=== PATIENT | female | born 1985 | race African-American/Black ===

== ENCOUNTER 2016-09-16 22:13 | Emergency (ER) | payer MEDICAID, OTHER ==
[~2016-09-16] VITALS: Ht 154.9 cm; Wt 54.4 kg
[2016-09-17] MEDS ORDERED: LORazepam 2MG/ML-1ML VIAL ONE (00:01)
[2016-09-17] MEDS ORDERED: LORazepam 2MG/ML-1ML VIAL IV ONE (00:15)
[2016-09-17 01:00] LABS: Basophils # (auto) 0 uL; Basophils % (auto) 0.1 % (0.0-2.0); CONDITION Y; Eosinophils # (auto) 0 uL; Eosinophils % (auto) 0.3 % (0.0-7.0); Hematocrit 30.7 % (36.0-46.0); Hemoglobin 10.1 g/dL (12.2-16.2); Lymphocytes # (auto) 1.6 uL; Lymphocytes % (auto) 12.3 % (10.0-50.0); Mean Corpuscular Hemoglobin 29.6 pg (28.0-32.0); Mean Corpuscular Volume 89.8 fL (80.0-100.0); Mean Platelet Volume 8.4 fL (7.4-10.4); Monocytes # (auto) 0.8 uL; Monocytes % (auto) 6.2 % (0.0-12.0); Neutrophils # (auto) 10.3 uL; Neutrophils % (auto) 81.1 % (37.0-80.0); Platelet Count (auto) 505 10^3/uL (140-450); White Blood Cell 12.6 10^3/uL (4.4-10.8)
[2016-09-17 01:11] LABS: Albumin 1.8 g/dL (3.4-5.0); BUN/Creatinine Ratio 11.9; Calcium 7.6 mg/dL (8.5-10.1); Potassium 3.3 mmol/L (3.5-5.1)
[2016-09-17 01:13] LABS: Bilirubin, Total 0.7 mg/dL (0.2-1.0); Total Protein 5.7 g/dL (6.4-8.2)
[2016-09-17] MEDS ORDERED: IOHEXOL 300 MG/ML 100ML BOTTLE IJ ONE (01:42)
[2016-09-17] MEDS ORDERED: GASTROGRAFIN 30 ML SOL ONE (01:42)
[2016-09-17] MEDS ORDERED: SODIUM CHLORIDE 0.9% 1,000 ML IV ONE (01:45)
[2016-09-17] MEDS ORDERED: cefTRIAXone 1GM/50ML D5W 50 ML IV ONE (01:45)
[2016-09-17 02:46] LABS: Urine Bilirubin Negative (Negative); Urine Color Yellow (Yellow); Urine Glucose Normal (Normal); Urine Ketone Negative (Negative); Urine Nitrite Negative (Negative); Urine RBC 4 /hpf (0 - 4); Urine Squamous Epithelial Cell FEW /hpf (<5); Urine Urobilinogen Normal (Negative); Urine WBC Clumps PRESENT /hpf (None Seen)
[2016-09-17 02:47] LABS: Urine Blood 2+ /uL (Negative)
[2016-09-17] MEDS ORDERED: VANCOMYCIN 1GM/250ML D5W 250 ML IV ONE (04:30)
[2016-09-17 05:15] LABS: INR 1.06 (0.9-1.15); Partial Thromboplastin Time 28.4 sec (22.64-33.71); Prothrombin Time 11.6 sec (9.37-12.3)
[2016-09-17] MEDS ORDERED: ACETAMINOPHEN 325 MG TAB PO ONE (05:30)
[2016-09-17 10:20] VITALS: BP 137/91
== END 2016-09-17 10:32 | disposition short-term general hospital (02) ==
LOC: EDBD 22:13 → ER 22:26
DX: G40.909 Epilepsy, unspecified, not intractable, without status epilepticus (principal); J18.9 Pneumonia, unspecified organism; K63.1 Perforation of intestine (nontraumatic); D72.829 Elevated white blood cell count, unspecified; Z98.890 Other specified postprocedural states; I10 Essential (primary) hypertension; Z90.710 Acquired absence of both cervix and uterus
CPT/HCPCS: 36415; 70450; 74176; 74177; 80053; 80307; 81001; 81025; 85025; 85610; 85730; 86850; 86870; 86900; 86901; 86905; 87040; 93005; 96361; 96365; 96367; 96375; 99285; J0696; J2060; J3370; J7030; Q9963; Q9967

== ENCOUNTER 2025-01-16 23:51 | Emergency (ER) | payer MEDICAID, OTHER ==
[~2025-01-16] VITALS: Ht 154.9 cm; Wt 83.6 kg
--- NOTE | 2025-01-17 01:30 | DVH ---
CLINICAL INDICATION: PAIN TECHNIQUE: XY R WRIST 3+ VIEW XRAY Comparison: None FINDINGS/IMPRESSION: : There is no evidence of acute fracture or dislocation. Soft tissues are unremarkable.
[2025-01-17] MEDS ORDERED: NABU-72 PO (01:44)
--- NOTE | 2025-01-17 01:46 | ED.PDOC ---
Back pain HPI HPI Comments 39-year-old female presents to the ED right wrist pain after lifting a heavy box. Denies numbness or weakness or any other symptoms Patient also hypertensive triage. She notes is scheduled for can you change your high blood pressure with her PCP. She notes not taken any medication at this time. Denies numbness, weakness, slurred speech, chest pain, difficulty breathing, headache or shortness of breath. Chief Complaint: Upper Extremity Time Seen by MD: 23:54 Reviewed Notes: Nurses Notes, Medications, Allergies Allergies: Coded Allergies: No Known Drug Allergy (Verified Allergy, Mild, 09/17/16) Home Meds Active Scripts Losartan Potassium (Losartan Potassium) 50 Mg Tab, 1 TAB PO DAILY for 30 Days, #30 TAB Prov:LEONID KUHN CONTROL ROOM TECHNICIAN 01/17/25 Nabumetone (Nabumetone) 500 Mg Tab, 1 TAB PO BID PRN for 6 Days, #12 TAB Prov:LEONID KUHN CONTROL ROOM TECHNICIAN 01/17/25 Information Source: Patient Mode of Arrival: Ambulatory Past Medical History PAST MEDICAL HISTORY: HTN, Seizures Surgical History: Hysterectomy 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: Uterine Fibroids Family History Family History: Unobtainable Social History Smoker: Non-Smoker Alcohol: Denies ETOH Use Drugs: Denies Drug Use Lives In: Home All Other Systems: Reviewed and Negative (see hpi) Physical Exam General Appearance: No Apparent Distress, Normal HEENT: Pharynx Normal Neck: Full Range of Motion, Non-Tender Respiratory: Lungs Clear, No Respiratory Distress, Normal Breath Sounds Cardiovascular: No Edema, No JVD, No Murmur, No Gallop, Normal Peripheral Pulses, Regular Rate/Rhythm Breast Exam: Deferred Gastrointestinal: Non Tender, Soft Genitalia: Deferred Pelvic: Deferred Rectal: Deferred Extremities: Normal capillary refill, Normal range of motion, No pedal edema Musculoskeletal : Location: Right Extremity Location: Wrist (Moderate tenderness on palpation about the wrist no noted edema ecchymosis or angulation strength sensory motion intact positive radial pulse) Apperance: Normal Neurologic: Alert, No Motor Deficits, Normal Affect, Normal Mood, No Sensory Deficits Cerebellar Function: Normal Reflexes: NOT DONE Skin: Dry, Normal Color, Warm Lymphatic: No Adenopathy Was a procedure done? Was a procedure done?: No Back Pain Differential Dx Differential Diagnosis: Fracture, Musculoskeletal Pain, Strain X-Ray, Labs, Meds, VS Vital Signs Date Time Temp Pulse Resp B/P (MAP) Pulse Ox O2 Delivery O2 Flow Rate FiO2 01/17/25 01:50 191/120 01/17/25 01:50 70 18 98 Room Air 01/17/25 01:50 98.1 70 18 191/120 (143) 98 98.1 01/17/25 00:16 98.2 82 18 163/128 100 98.2 Current Medications Medications (Trade) Dose Ordered Sig/Venessa Route Start Time Stop Time Status Last Admin Acetaminophen/ Hydrocodone Bitart ([place] 5/325MG Tab) 1 tab ONCE ONCE PO 01/17/25 01:45 01/17/25 01:46 DC 01/17/25 01:50 Clonidine HCl (Catapres Tablet) 0.1 mg ONCE ONCE PO 01/17/25 02:00 01/17/25 02:01 DC 01/17/25 01:50 X-Ray, Labs, Meds, VS Comment Right wrist x-ray shows no acute fractures subluxations, dislocations or osseous lesions. Script trial of NSAID. Patient placed in velcro splint for comfort and sling. Advised on rice. Advised to take medication as prescribed side effects discussed. Advised to follow up with her PCP in 2-3 days as needed consider further imaging. ER return precautions given patient indicates understanding and agrees with discharge plan of care. Hypertension---- patient given clonidine 0.1 mg we will script trial of losartan 50 mg p.o. once daily. Advised her to keep her appointment with her PCP. Keep a journal of her blood pressure readings. Advised to return to the ER for severe headache, slurred speech, dizziness, numbness, weakness, chest pain, difficulty breathing, shortness of breath. Images Reviewed?: Images reviewed and evaluated by me Time of 1ST Reevaluation: 00:10 Reevaluation 1ST: Unchanged Time of 2ND Reevaluation: 01:43 Reevaluation 2ND: Improved Patient Education/Counseling: Diagnosis, Treatment, Need For Follow Up Family Education/Counseling: No Family Present SEPSIS Sepsis Screen Date sepsis recognized/suspect: Jan 17, 2025 Time Sepsis recognized/suspect: 0021 Recent Procedure: No On Antibiotic Therapy: No Respiratory Rate >20: No Heart Rate >90: No Temp<36 C (96.8 F) or >38.3 C: No SBP <90 or MAP <65 mmHG: No New Acute Mental Status Change: No Is the patient on CPAP, BIPAP,: No Physician Orders R Wrist 3+ View Xray (01/17/25 00:04) Splints (01/17/25 ) Vital Signs Date Time Temp Pulse Resp B/P (MAP) Pulse Ox O2 Delivery O2 Flow Rate FiO2 01/17/25 01:50 191/120 01/17/25 01:50 70 18 98 Room Air 01/17/25 01:50 98.1 70 18 191/120 (143) 98 98.1 01/17/25 00:16 98.2 82 18 163/128 100 98.2 Medications Medications Dose Ordered Sig/Venessa Route Start Time Stop Time Status Last Admin Dose Admin Acetaminophen/ Hydrocodone Bitart 1 tab ONCE ONCE PO 01/17/25 01:45 01/17/25 01:46 DC 01/17/25 01:50 Clonidine HCl 0.1 mg ONCE ONCE PO 01/17/25 02:00 01/17/25 02:01 DC 01/17/25 01:50 Departure 1 Departure Time of Disposition: 01:43 Impression: Primary Impression: Right wrist sprain Qualified Codes: S63.501A - Unspecified sprain of right wrist, initial encounter Additional Impression: Hypertension Qualified Codes: I10 - Essential (primary) hypertension Disposition: 01 HOME / SELF CARE / HOMELESS Condition: Stable e-Prescriptions Losartan Potassium (Losartan Potassium) 50 Mg Tab 1 TAB PO DAILY for 30 Days, #30 TAB Prov: LEONID KUHN 01/17/25 Nabumetone (Nabumetone) 500 Mg Tab 1 TAB PO BID PRN for 6 Days, #12 TAB Prov: LEONID KUHN 01/17/25 Discharged With: Friend Critical Care Note Critical Care Time?: No Stability Stability form required: No LEONID KUHN Jan 17, 2025 01:46
[2025-01-17 01:50] VITALS: BP 191/120; PULSE 70; RESP 18; TEMP 98.1; O2SAT 98
[2025-01-17] MEDS: HYDROcodone-ACET 5/325MG TAB PO ONE (01:50)
[2025-01-17] MEDS ORDERED: LOSA-534 PO (01:50)
== END 2025-01-17 02:43 | disposition home or self-care (01) ==
LOC: ER 23:51
DX: S63.501A Unspecified sprain of right wrist, initial encounter (principal); I10 Essential (primary) hypertension; Z79.899 Other long term (current) drug therapy; Z86.018 Personal history of other benign neoplasm; Z90.710 Acquired absence of both cervix and uterus; X50.0XXA Overexertion from strenuous movement or load, initial encounter; Y93.89 Activity, other specified; Y92.89 Other specified places as the place of occurrence of the external cause; Y99.8 Other external cause status
CPT/HCPCS: 29125; 73110